=== PATIENT | male | born 1955 | race African-American/Black ===

== ENCOUNTER 2016-05-26 10:29 | Inpatient (IN) | payer MEDICAID, OTHER ==
[~2016-05-26] VITALS: Ht 160 cm; Wt 89.5 kg
[2016-05-26 10:51] LABS: GLUCOSE,POINT OF CARE 166 MG/DL (70-110)
[2016-05-26] MEDS ORDERED: CLON.2 PO (11:14)
[2016-05-26] MEDS ORDERED: ASPI81 PO (11:14)
[2016-05-26] MEDS ORDERED: AMLO-512 PO (11:14)
[2016-05-26] MEDS ORDERED: INSLAN SQ (11:14)
[2016-05-26] MEDS ORDERED: PIOG45 PO (11:14)
[2016-05-26] MEDS ORDERED: CLON.5 PO (11:14)
[2016-05-26] MEDS ORDERED: RISPC25 IM (11:14)
[2016-05-26] MEDS ORDERED: ATOR10TA84 PO (11:14)
[2016-05-26] MEDS ORDERED: METF500T4 PO (11:14)
[2016-05-26] MEDS ORDERED: PALI9TAB PO (11:14)
[2016-05-26] MEDS ORDERED: METO50 PO (11:14)
[2016-05-26] MEDS ORDERED: BENA20 PO (11:14)
[2016-05-26] MEDS ORDERED: TRIH2 PO (11:14)
[2016-05-26] MEDS ORDERED: HALOPERIDOL LACTATE 5 MG/ML VIAL IM ONE (11:30)
[2016-05-26 11:55] LABS: BASOPHILS % (AUTO) 0.2 % (0.0-2.0); EOSINOPHILS % (AUTO) 4.8 % (1.0-6.0); HEMATOCRIT 38.6 % (41-53); HEMOGLOBIN 12.1 g/dL (13.5-17.5); LYMPHOCYTES # (AUTO) 0.7 K/uL (1.0-4.8); LYMPHOCYTES % (AUTO) 7.3 % (22.0-44.0); MEAN CORPUSCULAR HEMOGLOBIN 27.5 pg (26.0-34.0); MEAN CORPUSCULAR HGB CONC 31.4 G/dL (31.0-37.0); MEAN CORPUSCULAR VOLUME 88 fL (80-100); MONOCYTES # (AUTO) 0.8 K/uL (0.1-1.0); NEUTROPHILS # (AUTO) 7.3 K/uL (1.8-7.7); NEUTROPHILS % (AUTO) 78.7 % (40.0-70.0); PLATELET COUNT (AUTO) 283 K/uL (150-450); RED BLOOD CELL COUNT(AUTO) 4.41 MIL/uL (4.50-5.90); RED CELL DISTRIBUTION WIDTH 15.9 % (11.5-14.5); WHITE BLOOD COUNT (AUTO) 9.3 K/uL (4.5-11.0)
[2016-05-26 12:16] LABS: ANION GAP 10 mmol/L (8-16); CALCIUM, TOTAL 9.4 mg/dL (8.8-10.5); CARBON DIOXIDE 27 mmol/L (22-29); CHLORIDE 105 mmol/L (98-107); CREATININE 1.96 mg/dL (0.60-1.30); GLOMERULAR FILTR. RATE CALC 43 mL/min (>60); POTASSIUM 4.9 mmol/L (3.5-5.1); SODIUM SERUM 142 mmol/L (136-145); UREA NITROGEN, BLOOD 36 mg/dL (7-18)
[2016-05-26 12:19] LABS: ALANINE AMINOTRANSFERASE 26 U/L (12-78); ALBUMIN 3.5 g/dL (3.4-5.0); ASPARTATE AMINOTRANSFERASE 46 U/L (15-37); BILIRUBIN,TOTAL 0.3 mg/dL (0.1-1.0); TOTAL PROTEIN, SERUM 7.8 g/dL (6.4-8.2)
[2016-05-26 18:37] VITALS: BP 117/60
[2016-05-26] MEDS ORDERED: PNEUMOCOCCAL VACCINE POLYVALENT 0.5 ML VIAL [PPSV23] IM ONE (20:00)
[2016-05-26] MEDS ORDERED: INSULIN DETEMIR 100 UNITS/ML SQ SCH (21:00)
[2016-05-26 21:17] LABS: GLUCOSE,POINT OF CARE 165 MG/DL (70-110)
[2016-05-27] MEDS: MetFORMIN HCL 500 MG TABLET PO SCH ×2 (07:00→16:38)
[2016-05-27 08:08] VITALS: BP 145/80
[2016-05-27] MEDS: PIOGLITAZONE HCL 45 MG TABLET PO SCH (09:52)
[2016-05-27] MEDS: METOPROLOL TARTRATE 50 MG TABLET PO SCH (09:53)
[2016-05-27] MEDS: ATORVASTATIN CALCIUM 10 MG TABLET PO SCH (09:54)
[2016-05-27] MEDS: ASPIRIN 81 MG CHEWABLE TABLET PO SCH (09:54)
[2016-05-27] MEDS: AmLODIPine BESYLATE 10 MG TABLET PO SCH (09:54)
[2016-05-27] MEDS: CloNIDine HCL 0.1 MG TABLET PO SCH ×2 (09:55→16:38)
[2016-05-27 16:32] LABS: GLUCOSE,POINT OF CARE 172 MG/DL (70-110)
[2016-05-27 16:42] VITALS: BP 138/61
[2016-05-27 20:52] LABS: GLUCOSE,POINT OF CARE 172 MG/DL (70-110)
[2016-05-28 06:16] LABS: GLUCOSE,POINT OF CARE 139 MG/DL (70-110)
[2016-05-28] MEDS: MetFORMIN HCL 500 MG TABLET PO SCH ×2 (06:20→17:03)
[2016-05-28 06:31] VITALS: BP 146/86
[2016-05-28 08:50] VITALS: BP 159/78
[2016-05-28] MEDS: BENZTROPINE MESYLATE 0.5 MG TABLET PO SCH ×2 (09:22→17:03)
[2016-05-28] MEDS: HALOPERIDOL 5 MG TABLET PO SCH ×2 (09:22→17:03)
[2016-05-28] MEDS: METOPROLOL TARTRATE 50 MG TABLET PO SCH (09:22)
[2016-05-28] MEDS: CloNIDine HCL 0.1 MG TABLET PO SCH ×2 (09:22→17:03)
[2016-05-28] MEDS: ASPIRIN 81 MG CHEWABLE TABLET PO SCH (09:22)
[2016-05-28] MEDS: AmLODIPine BESYLATE 10 MG TABLET PO SCH (09:23)
[2016-05-28] MEDS: PIOGLITAZONE HCL 45 MG TABLET PO SCH (09:23)
[2016-05-28] MEDS: ATORVASTATIN CALCIUM 10 MG TABLET PO SCH (09:23)
[2016-05-28] MEDS ORDERED: IBUPROFEN 400 MG TABLET PO PRN (09:30)
[2016-05-28] MEDS ORDERED: ACETAMINOPHEN 325 MG TABLET PO PRN (09:30)
[2016-05-28 16:14] VITALS: BP 139/66
[2016-05-28 17:32] LABS: GLUCOSE,POINT OF CARE 192 MG/DL (70-110)
[2016-05-28] MEDS: INSULIN DETEMIR 100 UNITS/ML SQ SCH (20:47)
[2016-05-28 20:51] LABS: GLUCOSE,POINT OF CARE 160 MG/DL (70-110)
[2016-05-29] MEDS: MetFORMIN HCL 500 MG TABLET PO SCH ×2 (06:24→17:09)
[2016-05-29 06:27] LABS: GLUCOSE,POINT OF CARE 124 MG/DL (70-110)
[2016-05-29 06:36] VITALS: BP 135/69
[2016-05-29 07:55] LABS: HEMOGLOBIN A1C 8.1 % (4.5-6.2)
[2016-05-29 08:32] VITALS: BP 138/72
[2016-05-29 08:43] LABS: THYROID STIMULATING HORMONE 1.59 uIU/mL (0.36-3.74)
[2016-05-29] MEDS: PIOGLITAZONE HCL 45 MG TABLET PO SCH (09:33)
[2016-05-29] MEDS: CloNIDine HCL 0.1 MG TABLET PO SCH ×2 (09:34→17:09)
[2016-05-29] MEDS: METOPROLOL TARTRATE 50 MG TABLET PO SCH (09:34)
[2016-05-29] MEDS: ATORVASTATIN CALCIUM 10 MG TABLET PO SCH (09:34)
[2016-05-29] MEDS: AmLODIPine BESYLATE 10 MG TABLET PO SCH (09:34)
[2016-05-29] MEDS: ASPIRIN 81 MG CHEWABLE TABLET PO SCH (09:34)
[2016-05-29] MEDS: HALOPERIDOL 5 MG TABLET PO SCH ×2 (09:38→17:09)
[2016-05-29] MEDS: BENZTROPINE MESYLATE 0.5 MG TABLET PO SCH ×2 (09:38→17:09)
[2016-05-29 16:23] VITALS: BP 130/88
[2016-05-29 18:57] LABS: GLUCOSE COMMENT 1 Received Meds; GLUCOSE,POINT OF CARE 202 MG/DL (70-110)
[2016-05-29] MEDS: INSULIN DETEMIR 100 UNITS/ML SQ SCH (21:04)
[2016-05-29 22:07] LABS: GLUCOSE,POINT OF CARE 154 MG/DL (70-110)
[2016-05-30 06:02] LABS: GLUCOSE,POINT OF CARE 111 MG/DL (70-110)
[2016-05-30 06:03] VITALS: BP 128/80
[2016-05-30] MEDS: MetFORMIN HCL 500 MG TABLET PO SCH ×2 (06:17→16:42)
[2016-05-30 08:55] VITALS: BP 124/81
[2016-05-30] MEDS: CloNIDine HCL 0.1 MG TABLET PO SCH (11:28)
[2016-05-30] MEDS: METOPROLOL TARTRATE 50 MG TABLET PO SCH (11:28)
[2016-05-30] MEDS: ASPIRIN 81 MG CHEWABLE TABLET PO SCH (11:28)
[2016-05-30] MEDS: BENZTROPINE MESYLATE 0.5 MG TABLET PO SCH ×2 (11:28→16:42)
[2016-05-30] MEDS: HALOPERIDOL 5 MG TABLET PO SCH ×2 (11:29→16:42)
[2016-05-30] MEDS: LORazepam 2 MG TABLET PO PRN (11:29)
[2016-05-30] MEDS: PIOGLITAZONE HCL 45 MG TABLET PO SCH (11:29)
[2016-05-30] MEDS: AmLODIPine BESYLATE 10 MG TABLET PO SCH (11:29)
[2016-05-30] MEDS: ATORVASTATIN CALCIUM 10 MG TABLET PO SCH (11:29)
[2016-05-30 13:20] VITALS: BP 68/27
[2016-05-30 13:25] VITALS: BP_SYST 68; BP_SYST 74; BP_DIAS 27; BP_DIAS 44
[2016-05-30 17:45] VITALS: BP 144/73
[2016-05-30] MEDS: INSULIN DETEMIR 100 UNITS/ML SQ SCH (20:58)
[2016-05-30 21:37] LABS: GLUCOSE COMMENT 1 Received Meds; GLUCOSE,POINT OF CARE 191 MG/DL (70-110)
[2016-05-31 01:29] VITALS: BP 139/86
[2016-05-31 01:32] VITALS: BP 139/86
[2016-05-31] MEDS: HALOPERIDOL 5 MG TABLET PO PRN ×2 (01:34→12:43)
[2016-05-31] MEDS: LORazepam 2 MG TABLET PO PRN (01:34)
[2016-05-31] MEDS: ZOLPIDEM TARTRATE 10 MG TABLET PO PRN (01:34)
[2016-05-31 06:11] LABS: GLUCOSE,POINT OF CARE 100 MG/DL (70-110)
[2016-05-31] MEDS: MetFORMIN HCL 500 MG TABLET PO SCH ×2 (06:16→17:28)
[2016-05-31] MEDS: BENZTROPINE MESYLATE 0.5 MG TABLET PO SCH ×2 (08:35→17:28)
[2016-05-31] MEDS: ATORVASTATIN CALCIUM 10 MG TABLET PO SCH (08:35)
[2016-05-31] MEDS: PIOGLITAZONE HCL 45 MG TABLET PO SCH (08:35)
[2016-05-31] MEDS: ASPIRIN 81 MG CHEWABLE TABLET PO SCH (08:35)
[2016-05-31] MEDS: HALOPERIDOL 5 MG TABLET PO SCH ×2 (08:35→17:28)
[2016-05-31 09:16] VITALS: BP 135/76
[2016-05-31 10:12] VITALS: BP 135/76
[2016-05-31 11:47] LABS: GLUCOSE,POINT OF CARE 126 MG/DL (70-110)
[2016-05-31 16:17] VITALS: BP 145/88
[2016-05-31 16:36] LABS: GLUCOSE COMMENT 1 Received Meds; GLUCOSE,POINT OF CARE 153 MG/DL (70-110)
[2016-05-31 20:52] LABS: GLUCOSE COMMENT 1 Received Meds; GLUCOSE,POINT OF CARE 122 MG/DL (70-110)
[2016-05-31] MEDS: INSULIN DETEMIR 100 UNITS/ML SQ SCH (21:13)
[2016-06-01 02:58] VITALS: BP 138/81
[2016-06-01 05:38] VITALS: BP 138/81
[2016-06-01] MEDS: MetFORMIN HCL 500 MG TABLET PO SCH ×2 (06:21→17:00)
[2016-06-01 06:22] LABS: GLUCOSE,POINT OF CARE 118 MG/DL (70-110)
[2016-06-01] MEDS: BENZTROPINE MESYLATE 0.5 MG TABLET PO SCH ×2 (09:36→17:00)
[2016-06-01] MEDS: PIOGLITAZONE HCL 45 MG TABLET PO SCH (09:36)
[2016-06-01] MEDS: ATORVASTATIN CALCIUM 10 MG TABLET PO SCH (09:37)
[2016-06-01] MEDS: CloNIDine HCL 0.1 MG TABLET PO PRN (09:37)
[2016-06-01] MEDS: ASPIRIN 81 MG CHEWABLE TABLET PO SCH (09:37)
[2016-06-01] MEDS: HALOPERIDOL 5 MG TABLET PO SCH ×2 (09:37→17:00)
[2016-06-01 10:37] VITALS: BP 138/74
[2016-06-01 11:56] LABS: GLUCOSE,POINT OF CARE 133 MG/DL (70-110)
[2016-06-01 16:00] VITALS: BP 140/76
[2016-06-01 17:07] LABS: GLUCOSE,POINT OF CARE 140 MG/DL (70-110)
[2016-06-01 20:57] LABS: GLUCOSE,POINT OF CARE 141 MG/DL (70-110)
[2016-06-01] MEDS: INSULIN DETEMIR 100 UNITS/ML SQ SCH (21:04)
[2016-06-02 06:12] LABS: GLUCOSE,POINT OF CARE 104 MG/DL (70-110)
[2016-06-02] MEDS: MetFORMIN HCL 500 MG TABLET PO SCH ×2 (06:15→16:46)
[2016-06-02 06:38] VITALS: BP 145/79
[2016-06-02] MEDS: PIOGLITAZONE HCL 45 MG TABLET PO SCH (09:03)
[2016-06-02] MEDS: BENZTROPINE MESYLATE 0.5 MG TABLET PO SCH ×2 (09:03→16:46)
[2016-06-02] MEDS: ASPIRIN 81 MG CHEWABLE TABLET PO SCH (09:03)
[2016-06-02] MEDS: ATORVASTATIN CALCIUM 10 MG TABLET PO SCH (09:03)
[2016-06-02] MEDS: HALOPERIDOL 5 MG TABLET PO SCH ×2 (09:03→16:46)
[2016-06-02 16:37] VITALS: BP 145/76
[2016-06-02] MEDS: CloNIDine HCL 0.1 MG TABLET PO PRN (16:46)
[2016-06-02 16:57] LABS: GLUCOSE COMMENT 1 Received Meds; GLUCOSE,POINT OF CARE 167 MG/DL (70-110)
[2016-06-02 17:30] VITALS: BP 138/78
[2016-06-02] MEDS: INSULIN DETEMIR 100 UNITS/ML SQ SCH (20:47)
[2016-06-02 20:51] LABS: GLUCOSE COMMENT 1 Received Meds; GLUCOSE,POINT OF CARE 151 MG/DL (70-110)
[2016-06-03 06:11] LABS: GLUCOSE,POINT OF CARE 81 MG/DL (70-110)
[2016-06-03] MEDS: MetFORMIN HCL 500 MG TABLET PO SCH ×2 (06:28→16:46)
[2016-06-03 06:48] VITALS: BP 120/90
[2016-06-03 08:09] VITALS: BP 152/88
[2016-06-03] MEDS: ATORVASTATIN CALCIUM 10 MG TABLET PO SCH (08:37)
[2016-06-03] MEDS: PIOGLITAZONE HCL 45 MG TABLET PO SCH (08:37)
[2016-06-03] MEDS: BENZTROPINE MESYLATE 0.5 MG TABLET PO SCH ×2 (08:38→16:46)
[2016-06-03] MEDS: HALOPERIDOL 5 MG TABLET PO SCH ×2 (08:38→16:46)
[2016-06-03] MEDS: ASPIRIN 81 MG CHEWABLE TABLET PO SCH (08:38)
[2016-06-03 11:51] LABS: GLUCOSE,POINT OF CARE 118 MG/DL (70-110)
[2016-06-03 16:40] VITALS: BP 139/60
[2016-06-03 17:17] LABS: GLUCOSE COMMENT 1 Received Meds; GLUCOSE,POINT OF CARE 139 MG/DL (70-110)
[2016-06-03] MEDS: INSULIN DETEMIR 100 UNITS/ML SQ SCH (21:06)
[2016-06-03 21:22] LABS: GLUCOSE COMMENT 1 Received Meds; GLUCOSE,POINT OF CARE 126 MG/DL (70-110)
[2016-06-04 01:50] VITALS: BP 141/80
[2016-06-04 06:22] LABS: GLUCOSE,POINT OF CARE 118 MG/DL (70-110)
[2016-06-04] MEDS: MetFORMIN HCL 500 MG TABLET PO SCH ×2 (06:32→16:36)
[2016-06-04 06:55] VITALS: BP 149/74
[2016-06-04] MEDS: CloNIDine HCL 0.1 MG TABLET PO PRN (06:58)
[2016-06-04 08:30] VITALS: BP 148/76
[2016-06-04] MEDS: HALOPERIDOL 5 MG TABLET PO SCH ×2 (08:49→16:37)
[2016-06-04] MEDS: ASPIRIN 81 MG CHEWABLE TABLET PO SCH (08:49)
[2016-06-04] MEDS: ATORVASTATIN CALCIUM 10 MG TABLET PO SCH (08:49)
[2016-06-04] MEDS: PIOGLITAZONE HCL 45 MG TABLET PO SCH (08:49)
[2016-06-04] MEDS: BENZTROPINE MESYLATE 0.5 MG TABLET PO SCH ×2 (08:49→16:37)
[2016-06-04 11:17] LABS: GLUCOSE,POINT OF CARE 133 MG/DL (70-110)
[2016-06-04 16:00] VITALS: BP 135/72
[2016-06-04 17:02] LABS: GLUCOSE COMMENT 1 Received Meds; GLUCOSE,POINT OF CARE 184 MG/DL (70-110)
[2016-06-04] MEDS: INSULIN DETEMIR 100 UNITS/ML SQ SCH (20:46)
[2016-06-04 21:11] LABS: GLUCOSE COMMENT 1 Received Meds; GLUCOSE,POINT OF CARE 190 MG/DL (70-110)
[2016-06-05] MEDS: HALOPERIDOL 5 MG TABLET PO PRN (00:07)
[2016-06-05] MEDS: LORazepam 2 MG TABLET PO PRN ×3 (00:07→17:23)
[2016-06-05] MEDS: ZOLPIDEM TARTRATE 10 MG TABLET PO PRN (00:07)
[2016-06-05 00:23] VITALS: BP 138/74
[2016-06-05] MEDS: MetFORMIN HCL 500 MG TABLET PO SCH ×2 (06:19→17:23)
[2016-06-05 06:21] LABS: GLUCOSE,POINT OF CARE 95 MG/DL (70-110)
[2016-06-05 08:31] VITALS: BP 136/78
[2016-06-05] MEDS: ATORVASTATIN CALCIUM 10 MG TABLET PO SCH (08:36)
[2016-06-05] MEDS: PIOGLITAZONE HCL 45 MG TABLET PO SCH (08:37)
[2016-06-05] MEDS: ASPIRIN 81 MG CHEWABLE TABLET PO SCH (08:37)
[2016-06-05] MEDS: BENZTROPINE MESYLATE 0.5 MG TABLET PO SCH ×2 (08:38→17:23)
[2016-06-05] MEDS: HALOPERIDOL 5 MG TABLET PO SCH ×2 (08:38→17:36)
[2016-06-05 11:57] LABS: GLUCOSE,POINT OF CARE 127 MG/DL (70-110)
[2016-06-05 16:14] VITALS: BP 132/77
[2016-06-05 21:02] LABS: GLUCOSE COMMENT 1 Received Meds; GLUCOSE,POINT OF CARE 150 MG/DL (70-110)
[2016-06-05] MEDS: INSULIN DETEMIR 100 UNITS/ML SQ SCH (21:22)
[2016-06-06 06:17] LABS: GLUCOSE COMMENT 1 Received Meds; GLUCOSE,POINT OF CARE 104 MG/DL (70-110)
[2016-06-06] MEDS: MetFORMIN HCL 500 MG TABLET PO SCH ×2 (06:17→17:21)
[2016-06-06 06:38] VITALS: BP 135/75
[2016-06-06] MEDS: LORazepam 2 MG TABLET PO PRN ×2 (08:38→17:21)
[2016-06-06] MEDS: ASPIRIN 81 MG CHEWABLE TABLET PO SCH (08:39)
[2016-06-06] MEDS: BENZTROPINE MESYLATE 0.5 MG TABLET PO SCH ×2 (08:39→17:21)
[2016-06-06] MEDS: ATORVASTATIN CALCIUM 10 MG TABLET PO SCH (08:39)
[2016-06-06] MEDS: PIOGLITAZONE HCL 45 MG TABLET PO SCH (08:39)
[2016-06-06] MEDS: HALOPERIDOL 5 MG TABLET PO SCH ×2 (08:39→17:20)
[2016-06-06 11:56] LABS: GLUCOSE,POINT OF CARE 114 MG/DL (70-110)
[2016-06-06 16:31] VITALS: BP 135/65
[2016-06-06 16:47] LABS: GLUCOSE,POINT OF CARE 149 MG/DL (70-110)
[2016-06-06 21:31] LABS: GLUCOSE,POINT OF CARE 130 MG/DL (70-110)
[2016-06-06] MEDS: INSULIN DETEMIR 100 UNITS/ML SQ SCH (22:01)
[2016-06-07 06:08] LABS: GLUCOSE COMMENT 1 Received Meds; GLUCOSE,POINT OF CARE 95 MG/DL (70-110)
[2016-06-07] MEDS: MetFORMIN HCL 500 MG TABLET PO SCH ×2 (06:15→16:22)
[2016-06-07] MEDS: ATORVASTATIN CALCIUM 10 MG TABLET PO SCH (09:05)
[2016-06-07] MEDS: ASPIRIN 81 MG CHEWABLE TABLET PO SCH (09:05)
[2016-06-07] MEDS: PIOGLITAZONE HCL 45 MG TABLET PO SCH (09:05)
[2016-06-07] MEDS: HALOPERIDOL 5 MG TABLET PO SCH ×2 (09:05→16:22)
[2016-06-07] MEDS: BENZTROPINE MESYLATE 0.5 MG TABLET PO SCH ×2 (09:05→16:22)
[2016-06-07 12:00] LABS: GLUCOSE,POINT OF CARE 88 MG/DL (70-110)
[2016-06-07] MEDS: INSULIN DETEMIR 100 UNITS/ML SQ SCH (21:00)
[2016-06-08] MEDS: MetFORMIN HCL 500 MG TABLET PO SCH ×2 (06:21→16:46)
[2016-06-08 06:53] LABS: GLUCOSE,POINT OF CARE 111 MG/DL (70-110)
[2016-06-08 08:16] VITALS: BP 158/88
[2016-06-08] MEDS: PIOGLITAZONE HCL 45 MG TABLET PO SCH (09:52)
[2016-06-08] MEDS: BENZTROPINE MESYLATE 0.5 MG TABLET PO SCH ×2 (09:52→16:46)
[2016-06-08] MEDS: ASPIRIN 81 MG CHEWABLE TABLET PO SCH (09:52)
[2016-06-08] MEDS: LORazepam 2 MG TABLET PO PRN (09:52)
[2016-06-08] MEDS: ATORVASTATIN CALCIUM 10 MG TABLET PO SCH (09:52)
[2016-06-08] MEDS: HALOPERIDOL 5 MG TABLET PO SCH ×2 (09:52→16:46)
[2016-06-08 11:03] VITALS: BP 138/82
[2016-06-08 16:00] VITALS: BP 144/70
[2016-06-08 17:47] LABS: GLUCOSE COMMENT 1 Received Meds; GLUCOSE,POINT OF CARE 143 MG/DL (70-110)
[2016-06-08] MEDS: CloNIDine HCL 0.1 MG TABLET PO PRN (18:59)
[2016-06-08 19:50] VITALS: BP 128/68
[2016-06-08 20:42] LABS: GLUCOSE COMMENT 1 Received Meds; GLUCOSE,POINT OF CARE 125 MG/DL (70-110)
[2016-06-08] MEDS: INSULIN DETEMIR 100 UNITS/ML SQ SCH (20:59)
[2016-06-09 06:27] LABS: GLUCOSE,POINT OF CARE 107 MG/DL (70-110)
[2016-06-09 06:59] VITALS: BP 128/83
[2016-06-09] MEDS: MetFORMIN HCL 500 MG TABLET PO SCH ×2 (07:06→16:23)
[2016-06-09] MEDS: BENZTROPINE MESYLATE 0.5 MG TABLET PO SCH ×2 (08:26→16:23)
[2016-06-09] MEDS: ATORVASTATIN CALCIUM 10 MG TABLET PO SCH (08:26)
[2016-06-09] MEDS: HALOPERIDOL 5 MG TABLET PO SCH ×2 (08:27→16:23)
[2016-06-09] MEDS: LORazepam 2 MG TABLET PO PRN (08:27)
[2016-06-09] MEDS: ASPIRIN 81 MG CHEWABLE TABLET PO SCH (08:27)
[2016-06-09] MEDS: PIOGLITAZONE HCL 45 MG TABLET PO SCH (08:27)
[2016-06-09 08:30] VITALS: BP 135/69
[2016-06-09] MEDS ORDERED: RisperiDONE MICROSPHERES 25 MG/2 ML SYRINGE IM SCH (11:30)
[2016-06-09] MEDS ORDERED: RISPC25 IM (11:32)
[2016-06-09] MEDS ORDERED: HALO5 PO (11:35)
[2016-06-09] MEDS ORDERED: BENZ0.5T6 PO (11:35)
[2016-06-09 16:00] VITALS: BP 142/70
[2016-06-09] MEDS: CloNIDine HCL 0.1 MG TABLET PO PRN (16:30)
[2016-06-09 17:22] LABS: GLUCOSE COMMENT 1 Received Meds; GLUCOSE,POINT OF CARE 160 MG/DL (70-110)
[2016-06-09 17:45] VITALS: BP 139/72
== END 2016-06-09 17:45 | disposition home or self-care (01) | DRG 750 ==
LOC: EMS 10:31 → EEVIPCON 10:31 → B3A 17:18
PROVIDERS: ADMIT Psychiatry & Neurology Child & Adolescent Psychiatry; ATTEND Psychiatry & Neurology Child & Adolescent Psychiatry
DX: F20.1 Disorganized schizophrenia (principal); I10 Essential (primary) hypertension; E11.9 Type 2 diabetes mellitus without complications; D64.9 Anemia, unspecified; E78.5 Hyperlipidemia, unspecified; F31.9 Bipolar disorder, unspecified; F79 Unspecified intellectual disabilities; Z91.14 Patient's other noncompliance with medication regimen; Z28.21 Immunization not carried out because of patient refusal; Z79.4 Long term (current) use of insulin; Z79.84 Long term (current) use of oral hypoglycemic drugs; Z79.82 Long term (current) use of aspirin; Z79.899 Other long term (current) drug therapy
CPT/HCPCS: 82962; 83036; 84443; 96372; 99285; G0480; J1630; J2794